=== PATIENT | male | born 1990 | race Caucasian/White ===

== ENCOUNTER 2016-12-08 02:30 | Emergency (ER) | payer SELFPAY ==
[~2016-12-08] VITALS: Ht 182.9 cm; Wt 65.0 kg
[~2016-12-08 02:30] MED LIST: CIPR500T4 PO; DOXY100T PO; Z.0.NO CURRENT MEDS
[2016-12-08 02:32] VITALS: BP 183/106; PULSE 59; RESP 20; O2SAT 97
[2016-12-08 02:40] VITALS: BP 181/106; PULSE 77; RESP 20; TEMP 98.7; O2SAT 99
[2016-12-08] MEDS ORDERED: SODIUM CHLORIDE 0.9% FLUSH 10 ML FLUSH IVF PRN (02:45)
[2016-12-08] MEDS ORDERED: HYDROmorphone HCL PF 1 MG/ML VIAL IVS ONE (02:45)
[2016-12-08] MEDS ORDERED: ONDANSETRON HCL 4 MG/2 ML VIAL IVP ONE (02:45)
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
[2016-12-08] MEDS ORDERED: HYDROmorphone HCL PF 1 MG/ML VIAL IV PUSH ONE (04:00)
[2016-12-08 04:01] VITALS: BP 176/102; PULSE 65; RESP 16; O2SAT 97
[2016-12-08 04:09] LABS: BASOPHIL % 0.4 % (0.0-2.0); EOSINOPHIL # 0.2 TH/MM3 (0-0.4); EOSINOPHIL % 1.7 % (0.0-4.0); HEMO FLAGS DIFF FINAL; LYMPH % 30.8 % (9.0-44.0); LYMPHOCYTE # 3.7 TH/MM3 (1.0-4.8); MEAN CELL VOLUME 90.2 FL (80.0-100.0); MEAN CORPUSCULAR HGB CONC 35.5 % (32.0-36.0); MONO % 8.3 % (0.0-8.0); NEUT % 58.8 % (16.0-70.0); PLATELET COUNT 263 TH/MM3 (150-450); RED BLOOD COUNT 5.21 MIL/MM3 (4.50-5.90); RED CELL DISTRIBUTION WIDTH 12.2 % (11.6-17.2)
[2016-12-08] MEDS ORDERED: cefTRIAXone INJ 1,000 MG in SODIUM CHLORIDE 0.9% INJ 100 ML IV ONE (04:15)
[2016-12-08] MEDS ORDERED: VANCOMYCIN INJ 1,500 MG in SODIUM CHLORID 0.9% 500 ML INJ 500 ML IV ONE (04:15)
[2016-12-08 04:19] LABS: APTT (PATIENT) 27.2 SEC (24.3-30.1); PROTHROMBIN TIME - PATIENT 10.7 SEC (9.8-11.6)
[2016-12-08 04:23] LABS: BICARBONATE 23.2 MEQ/L (21.0-32.0); POTASSIUM 3.6 MEQ/L (3.5-5.1)
== END 2016-12-08 05:40 | disposition short-term general hospital (02) ==
LOC: NEPC 02:30
DX: S02.0XXA Fracture of vault of skull, initial encounter for closed fracture (principal); S02.109A Fracture of base of skull, unspecified side, initial encounter for closed fracture; S02.80XA Fracture of other specified skull and facial bones, unspecified side, initial encounter for closed fracture; S02.2XXA Fracture of nasal bones, initial encounter for closed fracture; F17.200 Nicotine dependence, unspecified, uncomplicated; Z88.0 Allergy status to penicillin; Y04.2XXA Assault by strike against or bumped into by another person, initial encounter
CPT/HCPCS: 70450; 70486; 80048; 85025; 85610; 85730; 96365; 96375; 96376; 99285; J0696; J1170; J2405; J3370; J7040